=== PATIENT | male | born 1985 ===

== ENCOUNTER 2018-02-15 10:28 | Outpatient (CLI) | payer BC ==
--- NOTE | 2018-02-15 11:55 | Diagnostic Imaging Report ---
Indication: Back pain Technique: 4 views of the lumbar spine Comparison: None Findings: Bony alignment is normal. Vertebral body heights are preserved. The disc spaces are preserved. No acute fractures. No dislocations. The pedicles are intact. Sacroiliac joint spaces are preserved. Sacral arches are preserved. The surrounding soft tissues are unremarkable. The facet joint spaces are preserved Impression: Negative
== END 2018-02-15 12:28 | disposition home or self-care (01) ==
LOC: RAD 10:28
DX: M54.5 Low back pain (principal)
CPT/HCPCS: 72114